=== PATIENT | female | born 1990 | race Caucasian/White ===

== ENCOUNTER 2017-05-22 16:34 | Emergency (ER) | payer OTHER ==
[2017-05-22] MEDS ORDERED: Ondansetron 4 MG/2 ML SDV ONE (16:51)
[2017-05-22] MEDS ORDERED: Morphine 4 MG/ML Syringe ONE (16:52)
[2017-05-22] MEDS ORDERED: Ondansetron 4 MG/2 ML SDV IVPUSH ONE (16:54)
[2017-05-22] MEDS ORDERED: Lactated Ringers 1,000 ML IV ONE (16:56)
[2017-05-22] MEDS ORDERED: Morphine 4 MG/ML Syringe IVPUSH ONE ×2 (16:56→18:14)
[2017-05-22] MEDS ORDERED: Acetaminophen 325 MG Tab PO ONE (17:15)
[2017-05-22] MEDS ORDERED: diphenhydrAMINE 50 MG/ML SDV IVPUSH ONE (17:30)
--- NOTE | 2017-05-22 18:15 | EDM.PDOC ---
ED HPI GENERAL MEDICAL PROBLEM - General Chief Complaint: Headache Stated Complaint: UNK Time Seen by Provider: 05/22/17 16:40 Source of Information: Reports: Patient History Limitations: Reports: No Limitations - History of Present Illness INITIAL COMMENTS - FREE TEXT/NARRATIVE: History of present illness: []Patient presents with a left-sided headache and vomiting that started last night. He fevers chills or visual changes pain. Patient is 15 weeks and has been seen by Andree Moncada today and went to the infusion services for IV fluids. She was then sent here due to ongoing headache. She did have lab work done there that was normal however a UA checked shows UTI Review of systems: As per history of present illness and below otherwise all systems reviewed and negative. Past medical history: As per history of present illness and as reviewed below otherwise noncontributory. Surgical history: As per history of present illness and as reviewed below otherwise noncontributory. Social history: No reported history of drug or alcohol abuse. Family history: As per history of present illness and as reviewed below otherwise noncontributory. Physical exam: General: Well developed, well nourished in NAD HEENT: Atraumatic, normocephalic, pupils reactive, negative for conjunctival pallor or scleral icterus, mucous membranes moist, throat clear, neck supple, nontender, trachea midline. Lungs: Clear to auscultation, breath sounds equal bilaterally, chest nontender. Heart: S1S2, regular, negative for clicks, rubs, or JVD. Abdomen: Soft, nondistended, nontender. Negative for masses or hepatosplenomegaly. Negative for costovertebral tenderness. Pelvis: Stable nontender. Genitourinary: Deferred. Rectal: Deferred. Extremities: Atraumatic, negative for cords or calf pain. Neurovascular unremarkable. Neuro: Awake, alert, oriented. Cranial nerves II through XII unremarkable. Cerebellum unremarkable. Motor and sensory unremarkable throughout. Exam nonfocal. Diagnostics: [] Therapeutics: []IV fluids morphine Zofran for pain and nausea with good results Impression: []Migraine headache, UTI Plan: []Nitrofurantoin, fill prescription for Zofran follow-up with Andree. Definitive disposition and diagnosis as appropriate pending reevaluation and review of above. 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 - Past Surgical History HEENT Surgical History: Reports: Adenoidectomy, Tonsillectomy Social & Family History - Family History Family Medical History: Noncontributory - Tobacco Use Smoking Status *Q: Never Smoker Second Hand Smoke Exposure: No - Caffeine Use Caffeine Use: Reports: None - Recreational Drug Use Recreational Drug Use: No ED ROS GENERAL - Review of Systems Review Of Systems: See Below (See history of present illness) - Physical Exam Exam: See Below (See history of present illness) Course - Vital Signs Last Recorded V/S: Last Vital Signs Temp 98.7 F 05/22/17 16:35 Pulse 95 05/22/17 16:35 Resp 16 05/22/17 16:35 BP 117/69 05/22/17 16:35 Pulse Ox 100 05/22/17 16:35 - Orders/Labs/Meds Meds: Medications Discontinued Medications Generic Name Dose Route Start Last Admin Trade Name Fidelq PRN Reason Stop Dose Admin Acetaminophen 650 mg 05/22/17 17:15 05/22/17 18:19 Tylenol PO 05/22/17 17:16 650 mg NOW ONE Administration Diphenhydramine HCl 25 mg 05/22/17 17:30 05/22/17 18:08 Benadryl IVPUSH 05/22/17 17:31 Not Given ONETIME ONE Lactated Ringer's 1,000 mls @ 999 mls/hr 05/22/17 16:56 05/22/17 16:59 Ringers, Lactated IV 05/22/17 17:56 999 mls/hr .BOLUS ONE Administration Morphine Sulfate Confirm 05/22/17 16:52 05/22/17 17:01 Morphine Administered 05/22/17 16:53 Not Given Dose 4 mg .ROUTE .STK-MED ONE Morphine Sulfate 4 mg 05/22/17 16:56 05/22/17 17:23 Morphine IVPUSH 05/22/17 16:57 4 mg ONETIME ONE Administration Morphine Sulfate 4 mg 05/22/17 18:14 05/22/17 18:20 Morphine IVPUSH 05/22/17 18:15 4 mg ONETIME ONE Administration Ondansetron HCl Confirm 05/22/17 16:51 05/22/17 17:00 Zofran Administered 05/22/17 16:52 Not Given Dose 4 mg .ROUTE .STK-MED ONE Ondansetron HCl 4 mg 05/22/17 16:54 05/22/17 16:59 Zofran IVPUSH 05/22/17 16:55 4 mg ONETIME ONE Administration Departure - Departure Time of Disposition: 18:28 Disposition: Home, Self-Care 01 Condition: Good Clinical Impression: Migraine headache Qualifiers: Migraine type: unspecified Status migrainosus presence: without status migrainosus Intractability: not intractable Qualified Code(s): G43.909 - Migraine, unspecified, not intractable, without status migrainosus UTI (urinary tract infection) Qualifiers: Urinary tract infection type: site unspecified Hematuria presence: without hematuria Qualified Code(s): N39.0 - Urinary tract infection, site not specified - Discharge Information Prescriptions: Nitrofurantoin Macrocrystal [Macrodantin] 100 mg PO BID #20 capsule Referrals: PCP,None [Primary Care Provider] - Forms: ED Department Discharge Additional Instructions: The following information is given to patients seen in the emergency department who are being discharged to home. This information is to outline your options for follow-up care. We provide all patients seen in our emergency department with a follow-up referral. The need for follow-up, as well as the timing and circumstances, are variable depending upon the specifics of your emergency department visit. If you don't have a primary care physician on staff, we will provide you with a referral. We always advise you to contact your personal physician following an emergency department visit to inform them of the circumstance of the visit and for follow-up with them and/or the need for any referrals to a consulting specialist. The emergency department will also refer you to a specialist when appropriate. This referral assures that you have the opportunity for follow-up care with a specialist. All of these measure are taken in an effort to provide you with optimal care, which includes your follow-up. Under all circumstances we always encourage you to contact your private physician who remains a resource for coordinating your care. When calling for follow-up care, please make the office aware that this follow-up is from your recent emergency room visit. If for any reason you are refused follow-up, please contact the [facility] at and asked to speak to the emergency department charge nurse. Nitrofurantoin as directed, Zofran for nausea increase fluids follow-up with Andree
[2017-05-22 18:58] VITALS: BP 106/65
== END 2017-05-22 18:50 | disposition home or self-care (01) ==
LOC: MW.ED 16:34
DX: O99.352 Diseases of the nervous system complicating pregnancy, second trimester (principal); G43.909 Migraine, unspecified, not intractable, without status migrainosus; O23.42 Unspecified infection of urinary tract in pregnancy, second trimester; Z3A.15 15 weeks gestation of pregnancy
CPT/HCPCS: 96361; 96374; 96375; 99283; A9270; J2270; J2405; J7120; 36415; 80053; 81001; 85025

== ENCOUNTER 2017-10-22 00:03 | Inpatient (IN) | payer MEDICAID ==
[2017-10-22] MEDS ORDERED: Carboprost Tromethamine 250 MCG/1 ML Amp IM PRN (00:39)
[2017-10-22] MEDS ORDERED: Tranexamic Acid 1,000 MG in Sodium Chloride 0.9% 100 ML IV PRN (00:39)
[2017-10-22] MEDS ORDERED: Methylergonovine 0.2 MG/1 ML Amp IM PRN (00:39)
[2017-10-22] MEDS ORDERED: Nalbuphine 10 MG/1 ML Vial IVPUSH PRN (00:39)
[2017-10-22] MEDS ORDERED: Butorphanol 1 MG/ML SDV IVPUSH PRN (00:39)
[2017-10-22] MEDS ORDERED: Misoprostol 200 MCG Tab PO PRN (00:39)
[2017-10-22] MEDS ORDERED: Water For Irrigation,Sterile 1,000 ML Container IRR PRN (00:39)
[2017-10-22] MEDS ORDERED: Sodium Chloride 0.9% 2.5 ML Syringe FLUSH PRN (00:39)
[2017-10-22] MEDS ORDERED: Terbutaline 1 MG/ML SDV SUBCUT PRN (00:39)
[2017-10-22] MEDS ORDERED: Sodium Chloride 0.9% 10 ML Syringe FLUSH PRN (00:39)
[2017-10-22] MEDS ORDERED: Lidocaine 1% 50 ML MDV INJECT PRN (00:39)
[2017-10-22] MEDS ORDERED: Oxytocin/0.9 % Sodium Chloride 30 UNIT/500 ML BAG IV SCH ×2 (00:45)
[2017-10-22] MEDS: Lactated Ringers 1,000 ML IV SCH ×3 (01:48→11:25)
--- NOTE | 2017-10-22 07:57 | PCM.LDHP ---
L&D History of Present Illness - General Date of Service: 10/22/17 Admit Problem/Dx: Patient Status Order with Admit Dx/Problem 10/22/17 00:39 Patient Status [ADT] Routine Admission Diagnosis/Problem Admission Diagnosis/Problem - planned 10/22/17 07:52 27yo EDC 11/12/2017 37 0/7wks TWINS, A+, R-NI, GBS neg. H/H 8.5/27.8. IOL 10/22/17 07:56 Source of Information: Patient History Limitations: Reports: No Limitations - History of Present Illness Improves with: Reports: None Worsens with: Reports: None Associated Symptoms: Reports: N - Related Data Allergies/Adverse Reactions: Allergies Allergy/AdvReac Type Severity Reaction Status Date / Time No Known Allergies Allergy Verified 05/22/17 17:09 Home Medications: Home Meds PNV95/Ferrous Fumarate/FA [ Tablet] 1 each PO DAILY 05/22/17 [History] metroNIDAZOLE [Metronidazole] 1 10/22/17 [History] metroNIDAZOLE [Metronidazole] 1 cap PO 10/22/17 [History] metroNIDAZOLE [Metronidazole] 1 cap PO DAILY 10/22/17 [History] Past Medical History - Past Health History Medical/Surgical History: Denies 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 - Past Surgical History HEENT Surgical History: Reports: Adenoidectomy, Tonsillectomy Social & Family History - Family History Family Medical History: Noncontributory - Tobacco Use Smoking Status *Q: Never Smoker Second Hand Smoke Exposure: No - Caffeine Use Caffeine Use: Reports: Coffee, Soda - Recreational Drug Use Recreational Drug Use: No H&P Review of Systems - Review of Systems: Review Of Systems: See Below General: Reports: No Symptoms HEENT: Reports: No Symptoms Pulmonary: Reports: No Symptoms Cardiovascular: Reports: No Symptoms Gastrointestinal: Reports: No Symptoms Genitourinary: Reports: No Symptoms Musculoskeletal: Reports: No Symptoms Skin: Reports: No Symptoms Psychiatric: Reports: No Symptoms Neurological: Reports: No Symptoms Hematologic/Lymphatic: Reports: No Symptoms Immunologic: Reports: No Symptoms L&D Exam - Exam Exam: See Below - Vital Signs Weight: 109.316 kg - OB Specific Contraction Intensity: Mild to Moderate Movement: Active Heart Tones: Present Heart Rate (FHR) Variability: Moderate (6-25 bmp) Presentation: Vertex (Vtx/Vtx) - Exam General: Alert, Oriented, Cooperative HEENT: Hearing Intact Lungs: Clear to Auscultation, Normal Respiratory Effort Cardiovascular: Regular Rate, Regular Rhythm, Normal S1, Normal S2 GI/Abdominal Exam: Soft, Non-Tender Rectal Exam: Normal Exam, Normal Rectal Tone Genitourinary: Cervical dilitation Back Exam: Normal Inspection, Full Range of Motion Extremities: Normal Inspection, Normal Range of Motion, Non-Tender, No Pedal Edema, Normal Capillary Refill Neurological: Cranial Nerves Intact, Reflexes Equal Bilateral, Strength Equal Bilateral, Normal Speech, Normal Tone Psychiatric: Alert, Normal Affect, Normal Mood - Patient Data Lab Results Last 24 hrs: Laboratory Results - last 24 hr 10/22/17 10/22/17 Range/Units 01:17 01:17 WBC 11.06 H (4.0-11.0) K/uL RBC 3.53 L (4.30-5.90) M/uL Hgb 8.5 L (12.0-16.0) g/dL Hct 27.8 L (36.0-46.0) % MCV 78.8 L (80.0-98.0) fL MCH 24.1 L (27.0-32.0) pg MCHC 30.6 L (31.0-37.0) g/dL RDW Std Deviation 42.3 (28.0-62.0) fl RDW Coeff of Kyle 16 H (11.0-15.0) % Plt Count 295 (150-400) K/uL MPV 10.00 (7.40-12.00) fL Blood Type A POSITIVE Antibody Screen NEGATIVE Crossmatch See Detail Result Diagrams: 10/22/17 01:17 - Problem List (1) Twin gestation in third trimester SNOMED Code(s): 39105243 ICD Code: O30.003 - TWIN PREG, UNSP NUM PLCNTA & AMNIO SACS, THIRD TRIMESTER Status: Acute Priority: High Current Visit: Yes Qualifiers: Multiple gestation type: dichorionic and diamniotic Qualified Code(s): O30.043 - Twin , dichorionic/diamniotic, third trimester (2) Anemia affecting in third trimester SNOMED Code(s): 69832891, 11069258 ICD Code: O99.013 - ANEMIA COMPLICATING , THIRD TRIMESTER Status: Acute Priority: High Current Visit: Yes Problem List Initiated/Reviewed/Updated: Yes Orders Last 24hrs: Active Orders 24 hr Category Date Time Status Patient Status [ADT] Routine ADT 10/22/17 00:39 Active Communication Order [RC] ASDIRECTED Care 10/22/17 00:39 Active Communication Order [RC] ASDIRECTED Care 10/22/17 00:39 Active Heart Tones [RC] CONTINUOUS Care 10/22/17 00:39 Active Non Stress Test [RC] PER UNIT ROUTINE Care 10/22/17 00:39 Active May Shower [RC] ASDIRECTED Care 10/22/17 00:39 Active Notify Provider [RC] PRN Care 10/22/17 00:39 Active Notify Provider [RC] PRN Care 10/22/17 00:39 Active Notify Provider [RC] STAT Care 10/22/17 00:39 Active Oxygen Therapy [RC] ASDIRECTED Care 10/22/17 00:39 Active Up ad Laura [RC] ASDIRECTED Care 10/22/17 00:39 Active Vaginal Exam [RC] PRN Care 10/22/17 00:39 Active Vital Signs [RC] PER UNIT ROUTINE Care 10/22/17 00:39 Active OB 2 Or 3 Tri Ea Addl Gest [US] Routine Exams 10/22/17 00:44 Taken RED BLOOD CELLS LP [BBK] Stat Lab 10/22/17 01:17 Results TYPE AND SCREEN [BBK] Routine Lab 10/22/17 01:17 Results Butorphanol [Stadol] Med 10/22/17 00:39 Active 1 mg IVPUSH Q1H PRN Carboprost Tromethamine [Hemabate DS] Med 10/22/17 00:39 Active 250 mcg IM ASDIRECTED PRN Lactated Ringers [Ringers, Lactated] 1,000 ml Med 10/22/17 00:45 Active IV ASDIRECTED Lidocaine 1% [Xylocaine 1%] Med 10/22/17 00:39 Active 50 ml INJECT .ONCE PRN Methylergonovine [Methergine] Med 10/22/17 00:39 Active 0.2 mg IM ASDIRECTED PRN Misoprostol [Cytotec] Med 10/22/17 00:39 Active 200 mcg PO .ONCE PRN Nalbuphine [Nubain] Med 10/22/17 00:39 Active 10 mg IVPUSH Q1H PRN Oxytocin/0.9 % Sodium Chloride [Oxytocin 30 Unit/500 ML Med 10/22/17 00:45 Active -NS] 30 unit in 500 ml IV TITRATE Oxytocin/0.9 % Sodium Chloride [Oxytocin 30 Unit/500 ML Med 10/22/17 00:45 Active -NS] 30 unit in 500 ml IV TITRATE Sodium Chloride 0.9% [Saline Flush] Med 10/22/17 00:39 Active 10 ml FLUSH ASDIRECTED PRN Sodium Chloride 0.9% [Saline Flush] Med 10/22/17 00:39 Active 2.5 ml FLUSH ASDIRECTED PRN Terbutaline [Brethine] Med 10/22/17 00:39 Active 0.25 mg SUBCUT ASDIRECTED PRN Tranexamic Acid [Cyklokapron] 1,000 mg Med 10/22/17 00:39 Active Sodium Chloride 0.9% [Normal Saline] 100 ml IV ONETIME Water For Irrigation,Sterile [Sterile Water for Med 10/22/17 00:39 Active Irrigation] 1,000 ml IRR ASDIRECTED PRN Scalp Electrode [WOMSER] Per Unit Routine Oth 10/22/17 00:39 Ordered Medication Administration Instruction [OM.PC] Q3H Oth 10/22/17 00:45 Ordered Peripheral IV Insertion Adult [OM.PC] Routine Oth 10/22/17 00:39 Ordered Resuscitation Status Routine Resus Stat 10/22/17 00:39 Ordered Medication Orders Butorphanol Tartrate (Stadol) 1 mg IVPUSH Q1H PRN PRN Reason: Pain Carboprost Tromethamine (Hemabate Ds) 250 mcg IM ASDIRECTED PRN PRN Reason: Post Hemorrhage Lactated Ringer's (Ringers, Lactated) 1,000 mls @ 150 mls/hr IV ASDIRECTED REANNA Last Admin: 10/22/17 01:48 Dose: 150 mls/hr Oxytocin/Sodium Chloride (Oxytocin 30 Unit/500 Ml-Ns) 30 unit in 500 mls @ 999 mls/hr IV TITRATE REANNA Oxytocin/Sodium Chloride (Oxytocin 30 Unit/500 Ml-Ns) 30 unit in 500 mls @ 2 mls/hr IV TITRATE REANNA; Protocol Last Titration: 10/22/17 06:30 Dose: 10 munits/min, 10 mls/hr Titration: 10/22/17 05:15 Dose: 8 munits/min, 8 mls/hr Titration: 10/22/17 04:30 Dose: 6 munits/min, 6 mls/hr Titration: 10/22/17 03:53 Dose: 4 munits/min, 4 mls/hr Admin: 10/22/17 02:48 Dose: 2 munits/min, 2 mls/hr Tranexamic Acid 1,000 mg/ (Sodium Chloride) 110 mls @ 660 mls/hr IV ONETIME PRN PRN Reason: Bleeding Lidocaine HCl (Xylocaine 1%) 50 ml INJECT .ONCE PRN PRN Reason: Laceration repair Methylergonovine Maleate (Methergine) 0.2 mg IM ASDIRECTED PRN PRN Reason: Post Hemorrhage Misoprostol (Cytotec) 200 mcg PO .ONCE PRN PRN Reason: Post Hemorrhage Nalbuphine HCl (Nubain) 10 mg IVPUSH Q1H PRN PRN Reason: Pain (severe 7-10) Sodium Chloride (Saline Flush) 10 ml FLUSH ASDIRECTED PRN PRN Reason: Keep Vein Open Sodium Chloride (Saline Flush) 2.5 ml FLUSH ASDIRECTED PRN PRN Reason: Keep Vein Open Sterile Water (Sterile Water For Irrigation) 1,000 ml IRR ASDIRECTED PRN PRN Reason: delivery Terbutaline Sulfate (Brethine) 0.25 mg SUBCUT ASDIRECTED PRN PRN Reason: Tacysystole Assessment/Plan Comment:: IOL A: 27yo EDC 11/12/2017 37 0/7wks TWINS, A+, R-NI, GBS neg. H/H 8.5/27.8. IOL, VSS, AF, Cat I tracing x2, Epidural now P: Admit, pitocin, epidural, anticipate , Dr Kim and Shantell updated on pt status
--- NOTE | 2017-10-22 08:41 | PCM.PREANE ---
Preanesthetic Assessment - Anesthesia/Transfusion/Family Hx Family History of Anesthesia Reaction: No - Review of Systems General: No Symptoms Pulmonary: No Symptoms Cardiovascular: No Symptoms Gastrointestinal: No Symptoms Neurological: No Symptoms Other: Reports: None (Denies any personal or family hx of bleeding or clotting problems) - Physical Assessment Height: 1.7 m Weight: 109.316 kg ASA Class: 2 Mental Status: Alert & Oriented x3 ROM/Head Extension: Full - Lab Values: Laboratory Last Values WBC 11.06 K/uL (4.0-11.0) H 10/22/17 01:17 RBC 3.53 M/uL (4.30-5.90) L 10/22/17 01:17 Hgb 8.5 g/dL (12.0-16.0) L 10/22/17 01:17 Hct 27.8 % (36.0-46.0) L 10/22/17 01:17 MCV 78.8 fL (80.0-98.0) L 10/22/17 01:17 MCH 24.1 pg (27.0-32.0) L 10/22/17 01:17 MCHC 30.6 g/dL (31.0-37.0) L 10/22/17 01:17 RDW Std Deviation 42.3 fl (28.0-62.0) 10/22/17 01:17 RDW Coeff of Kyle 16 % (11.0-15.0) H 10/22/17 01:17 Plt Count 295 K/uL (150-400) 10/22/17 01:17 MPV 10.00 fL (7.40-12.00) 10/22/17 01:17 Blood Type A POSITIVE 10/22/17 01:17 Antibody Screen NEGATIVE 10/22/17 01:17 Crossmatch See Detail 10/22/17 01:17 - Allergies Allergies/Adverse Reactions: Allergies Allergy/AdvReac Type Severity Reaction Status Date / Time No Known Allergies Allergy Verified 05/22/17 17:09 - Acknowledgements Anesthesia Type Planned: Epidural Pt an Appropriate Candidate for the Planned Anesthesia: Yes Alternatives and Risks of Anesthesia Discussed w Pt/Guardian: Yes Pt/Guardian Understands and Agrees with Anesthesia Plan: Yes PreAnesthesia Questionnaire - Past Health History Medical/Surgical History: Denies 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 - Past Surgical History HEENT Surgical History: Reports: Adenoidectomy, Tonsillectomy - SUBSTANCE USE Smoking Status *Q: Never Smoker Second Hand Smoke Exposure: No Recreational Drug Use History: No - HOME MEDS Home Medications: Home Meds PNV95/Ferrous Fumarate/FA [ Tablet] 1 each PO DAILY 05/22/17 [History] metroNIDAZOLE [Metronidazole] 1 10/22/17 [History] metroNIDAZOLE [Metronidazole] 1 cap PO 10/22/17 [History] metroNIDAZOLE [Metronidazole] 1 cap PO DAILY 10/22/17 [History] - CURRENT (IN HOUSE) MEDS Current Meds: Current Medications Butorphanol Tartrate (Stadol) 1 mg IVPUSH Q1H PRN PRN Reason: Pain Carboprost Tromethamine (Hemabate Ds) 250 mcg IM ASDIRECTED PRN PRN Reason: Post Hemorrhage Lactated Ringer's (Ringers, Lactated) 1,000 mls @ 150 mls/hr IV ASDIRECTED REANNA Last Admin: 10/22/17 08:00 Dose: 999 mls/hr Oxytocin/Sodium Chloride (Oxytocin 30 Unit/500 Ml-Ns) 30 unit in 500 mls @ 999 mls/hr IV TITRATE REANNA Oxytocin/Sodium Chloride (Oxytocin 30 Unit/500 Ml-Ns) 30 unit in 500 mls @ 2 mls/hr IV TITRATE REANNA; Protocol Last Titration: 10/22/17 08:28 Dose: 12 munits/min, 12 mls/hr Tranexamic Acid 1,000 mg/ (Sodium Chloride) 110 mls @ 660 mls/hr IV ONETIME PRN PRN Reason: Bleeding Lidocaine HCl (Xylocaine 1%) 50 ml INJECT .ONCE PRN PRN Reason: Laceration repair Methylergonovine Maleate (Methergine) 0.2 mg IM ASDIRECTED PRN PRN Reason: Post Hemorrhage Misoprostol (Cytotec) 200 mcg PO .ONCE PRN PRN Reason: Post Hemorrhage Nalbuphine HCl (Nubain) 10 mg IVPUSH Q1H PRN PRN Reason: Pain (severe 7-10) Sodium Chloride (Saline Flush) 10 ml FLUSH ASDIRECTED PRN PRN Reason: Keep Vein Open Sodium Chloride (Saline Flush) 2.5 ml FLUSH ASDIRECTED PRN PRN Reason: Keep Vein Open Sterile Water (Sterile Water For Irrigation) 1,000 ml IRR ASDIRECTED PRN PRN Reason: delivery Terbutaline Sulfate (Brethine) 0.25 mg SUBCUT ASDIRECTED PRN PRN Reason: Tacysystole Discontinued Medications Fentanyl/Bupivacaine HCl ([id number]-[id number] 2 Mcg/Ml-0.125%) Confirm Administered Dose 100 mls @ as directed EP .STK-MED ONE Stop: 10/22/17 07:50 Last Admin: 10/22/17 08:23 Dose: 9 mls/hr
--- NOTE | 2017-10-22 14:23 | PCM.DEL ---
L & D Note - General Info Date of Service: 10/22/17 Mother's Due Date: 11/12/17 - Delivery Note Labor: Induced by Oxytocin Delivery Outcome: Livebirth Infant Delivery Method: Spontaneous Vaginal Delivery-Twins Infant Delivery Mode: Spontaneous (twin A and Vacuum assist with B for one push) Presentation: Vertex (Vtx/Vtx) Nuchal Cord: Present, Reduced Anesthesia Type: Epidural Amniotic Fluid Description: Clear Episiotomy Type: None Laceration: None Placenta: Intact, Spontaneous Cord: 3 Vessels Estimated Blood Loss: 200 Resuscitation Needed: No Score 1 min: 9 (A and B) Score 5 min: 9 (A and B) Second Stage Interventions: Reports: Pushing, Pulls Own Legs Back Delivery Comments (Free Text/Narrative):: of viable girl (twin A) over intact perineum, head delivered with good pushing, shoulder and body loose nuchal noted followed easily. Infant to mothers abd with spont cry. Dr Stinson at bs for evaluation. Delayed cord clamp x1 min, cord clamped x2 and cut. Cord blood collected. BS u/s noted twin B vertex, after a few min baby engaged in the pelvis and AROM clear fluid. Pushing resumed. FHT noted dropping to the 80 for B. O2 at 10L. Dr Kim placed a [place] vacuum and with one push the infant was . Head delivered with good pushing, shoulders and body followed and body nuchal noted. spont cry placed on the abd and again Dr Stinson was at bs for evaluation. Delayed cord clamp, pitocin to IVF, Cord clamped and cut. Cord blood collected. Placentas delivered grossly intact x2. Inspection noted intact perineum. EBL 200cc. APGARS A: 12/20 Wt: 6lb 2oz, B: / Wt: 5lb 15oz. Mother and baby's stable and bonding well. Vacuum Extractor Progress Note - Alternative Labor Strategies Considered Alternative Labor Strategies Considered:: Reports: Yes Strategies Considered:: Reports: Contraction Intensity Adequate, Empty Bladder Indications Considered:: Reports: Yes Indications:: Reports: Suspicion of Immediate or Potential Compromise - Patient Prepared Patient Prepared:: Reports: Yes Informed Consent:: Reports: Verbal Risks: Reports: Yes Risks Include:: Reports: Laceration, Shoulder Dystocia, Maternal Injury Anesthesia/Analgesia Adequate:: Reports: Yes - Probability of Success High Probability of Success:: Reports: Yes Weight Estimated:: Reports: AGA Patient Diabetic:: Reports: No Pelvis Adequate:: Reports: Yes Asynclitic:: Reports: Yes - General Info Date of Service: 10/22/17 Admission Dx/Problem (Free Text): Patient Status Order with Admit Dx/Problem 10/22/17 00:39 Patient Status [ADT] Routine Admission Diagnosis/Problem Admission Diagnosis/Problem - planned 10/22/17 07:52 27yo EDC 11/12/2017 37 0/7wks TWINS, A+, R-NI, GBS neg. H/H 8.5/27.8. IOL 10/22/17 07:56 Functional Status: Reports: Pain Controlled - Review of Systems General: Reports: No Symptoms HEENT: Reports: No Symptoms Pulmonary: Reports: No Symptoms Cardiovascular: Reports: No Symptoms Gastrointestinal: Reports: No Symptoms Genitourinary: Reports: No Symptoms Musculoskeletal: Reports: No Symptoms Skin: Reports: No Symptoms Neurological: Reports: No Symptoms Psychiatric: Reports: No Symptoms - Patient Data Weight - Most Recent: 109.316 kg Lab Results Last 24 Hours: Laboratory Results - last 24 hr 10/22/17 10/22/17 Range/Units 01:17 01:17 WBC 11.06 H (4.0-11.0) K/uL RBC 3.53 L (4.30-5.90) M/uL Hgb 8.5 L (12.0-16.0) g/dL Hct 27.8 L (36.0-46.0) % MCV 78.8 L (80.0-98.0) fL MCH 24.1 L (27.0-32.0) pg MCHC 30.6 L (31.0-37.0) g/dL RDW Std Deviation 42.3 (28.0-62.0) fl RDW Coeff of Kyle 16 H (11.0-15.0) % Plt Count 295 (150-400) K/uL MPV 10.00 (7.40-12.00) fL Blood Type A POSITIVE Antibody Screen NEGATIVE Crossmatch See Detail Med Orders - Current: Current Medications Discontinued Medications Butorphanol Tartrate (Stadol) 1 mg IVPUSH Q1H PRN PRN Reason: Pain Carboprost Tromethamine (Hemabate Ds) 250 mcg IM ASDIRECTED PRN PRN Reason: Post Hemorrhage Lactated Ringer's (Ringers, Lactated) 1,000 mls @ 150 mls/hr IV ASDIRECTED REANNA Last Admin: 10/22/17 11:25 Dose: 150 mls/hr Oxytocin/Sodium Chloride (Oxytocin 30 Unit/500 Ml-Ns) 30 unit in 500 mls @ 999 mls/hr IV TITRATE REANNA Oxytocin/Sodium Chloride (Oxytocin 30 Unit/500 Ml-Ns) 30 unit in 500 mls @ 2 mls/hr IV TITRATE REANNA; Protocol Last Titration: 10/22/17 11:00 Dose: 16 munits/min, 16 mls/hr Tranexamic Acid 1,000 mg/ (Sodium Chloride) 110 mls @ 660 mls/hr IV ONETIME PRN PRN Reason: Bleeding Fentanyl/Bupivacaine HCl (Htzmsxgw-Jkhwe-Xj 2 Mcg/Ml-0.125%) Confirm Administered Dose 100 mls @ as directed EP .K-MED ONE Stop: 10/22/17 07:50 Last Admin: 10/22/17 08:23 Dose: 9 mls/hr Lidocaine HCl (Xylocaine 1%) 50 ml INJECT .ONCE PRN PRN Reason: Laceration repair Methylergonovine Maleate (Methergine) 0.2 mg IM ASDIRECTED PRN PRN Reason: Post Hemorrhage Misoprostol (Cytotec) 200 mcg PO .ONCE PRN PRN Reason: Post Hemorrhage Nalbuphine HCl (Nubain) 10 mg IVPUSH Q1H PRN PRN Reason: Pain (severe 7-10) Sodium Chloride (Saline Flush) 10 ml FLUSH ASDIRECTED PRN PRN Reason: Keep Vein Open Sodium Chloride (Saline Flush) 2.5 ml FLUSH ASDIRECTED PRN PRN Reason: Keep Vein Open Sterile Water (Sterile Water For Irrigation) 1,000 ml IRR ASDIRECTED PRN PRN Reason: delivery Terbutaline Sulfate (Brethine) 0.25 mg SUBCUT ASDIRECTED PRN PRN Reason: Tacysystole - Exam General: Alert, Oriented, No Acute Distress Lungs: Normal Respiratory Effort GI/Abdominal Exam: Soft (Female) Exam: Normal External Exam, Normal Bimanual Exam, Vaginal Bleeding Back Exam: Normal Inspection, Full Range of Motion Extremities: Normal Inspection, Normal Range of Motion, Non-Tender, No Pedal Edema, Normal Capillary Refill Skin: Warm, Dry, Intact Wound/Incisions: Healing Well Neurological: No New Focal Deficit, Normal Speech, Normal Tone, Strength Equal Bilateral Psy/Mental Status: Alert, Normal Affect, Normal Mood - Problem List & Annotations (1) Twin gestation in third trimester SNOMED Code(s): 00260865 Code(s): O30.003 - TWIN PREG, UNSP NUM PLCNTA & AMNIO SACS, THIRD TRIMESTER Status: Acute Priority: High Current Visit: Yes Qualifiers: Multiple gestation type: dichorionic and diamniotic Qualified Code(s): O30.043 - Twin , dichorionic/diamniotic, third trimester (2) Anemia affecting in third trimester SNOMED Code(s): 57837976, 51872533 Code(s): O99.013 - ANEMIA COMPLICATING , THIRD TRIMESTER Status: Acute Priority: High Current Visit: Yes (3) Twin SNOMED Code(s): 74362225 Code(s): Z37.9 - OUTCOME OF DELIVERY, UNSPECIFIED Status: Acute Priority : High Current Visit: Yes (4) (spontaneous vaginal delivery) SNOMED Code(s): 47509711 Code(s): O80 - ENCOUNTER FOR FULL-TERM UNCOMPLICATED DELIVERY Status: Acute Priority: High Current Visit: No - Problem List Review Problem List Initiated/Reviewed/Updated: Yes - Plan Plan:: IOL A: 27yo EDC 11/12/2017 37 0/7wks TWINS, A+, R-NI, GBS neg. H/H 8.5/27.8. IOL, VSS, AF, Cat I tracing x2, Epidural now P: Admit, pitocin, epidural, anticipate , Dr Kim and Shantell updated on pt status Delivery A: of twin A and vacuum assist with twin B, APGARS 9/9 for both A: 6lb 2oz , B: 5lb 15oz, Intact perineum, EBL 200cc. STable mom and babies P: Routine pp plan of care
[2017-10-22] MEDS ORDERED: oxyCODONE 5 MG Tab PO PRN (14:27)
[2017-10-22] MEDS ORDERED: Bisacodyl 10 MG Supp RECTAL PRN (14:27)
[2017-10-22] MEDS ORDERED: Acetaminophen 500 MG Tab PO PRN ×2 (14:27)
[2017-10-22] MEDS ORDERED: Ibuprofen 400 MG Tab PO PRN (14:27)
[2017-10-22] MEDS ORDERED: Benzocaine/Menthol 20%-0.5% Spray 78 GM Cannister TOP PRN (14:27)
[2017-10-22] MEDS ORDERED: Witch Hazel Medicated Pads 40/Jar TOP PRN (14:27)
[2017-10-22] MEDS ORDERED: Lanolin 100% Cream 7 GM Tube TOP PRN (14:27)
--- NOTE | 2017-10-22 16:16 | US ---
EXAMINATION: Transabdominal obstetric ultrasound HISTORY: Twin delivery COMPARISON: 10/22/2017 TECHNIQUE: Single grayscale images provided FINDINGS/IMPRESSION: Single grayscale images demonstrates twin B in a cephalic position.
--- NOTE | 2017-10-22 17:28 | PCM48HPAN ---
Post Anesthesia Note - EVALUATION WITHIN 48HRS OF ANESTHETIC Vital Signs in Normal Range: Yes Patient Participated in Evaluation: Yes Respiratory Function Stable: Yes Airway Patent: Yes Cardiovascular Function Stable: Yes Hydration Status Stable: Yes Pain Control Satisfactory: Yes Nausea and Vomiting Control Satisfactory: Yes Mental Status Recovered: Yes Resp Rate: 18 - COMMENTS/OBSERVATIONS Free Text/Narrative:: Patient sitting up in bed and denies any complaints. States epidural worked well and was taken out immediately after delivery.
[2017-10-23] MEDS: Ibuprofen 800 MG Tab PO PRN ×2 (03:01→13:01)
[2017-10-23] MEDS: Docusate Sodium 100 MG Cap PO PRN ×2 (09:12→22:03)
--- NOTE | 2017-10-23 10:08 | PCM.PNPP ---
- General Info Date of Service: 10/23/17 Functional Status: Reports: Pain Controlled - Review of Systems General: Reports: No Symptoms HEENT: Reports: No Symptoms Pulmonary: Reports: No Symptoms Cardiovascular: Reports: No Symptoms Gastrointestinal: Reports: No Symptoms Genitourinary: Reports: No Symptoms Musculoskeletal: Reports: No Symptoms Skin: Reports: No Symptoms Neurological: Reports: No Symptoms Psychiatric: Reports: No Symptoms - General Info Date of Service: 10/23/17 - Patient Data Vital Signs - Most Recent: Last Vital Signs Temp 37.0 C 10/23/17 05:00 Pulse 84 10/23/17 05:00 Resp 18 10/23/17 05:00 BP 112/58 L 10/23/17 05:00 Pulse Ox 96 10/23/17 05:00 Weight - Most Recent: 109.316 kg Lab Results - Last 24 Hours: Laboratory Results - last 24 hr 10/23/17 Range/Units 05:11 Hgb 8.6 L (12.0-16.0) g/dL Hct 27.4 L (36.0-46.0) % Med Orders - Current: Current Medications Acetaminophen (Tylenol Extra Strength) 500 mg PO Q4H PRN PRN Reason: Pain Acetaminophen (Tylenol Extra Strength) 1,000 mg PO Q4H PRN PRN Reason: Pain Benzocaine/Menthol (Dermoplast Pain Relief 20%-0.5% [place]) 78 gm TOP ASDIRECTED PRN PRN Reason: Perineal Comfort Measure Last Admin: 10/22/17 17:06 Dose: 1 spray Bisacodyl (Dulcolax) 10 mg RECTAL .ONCE PRN PRN Reason: Constipation Docusate Sodium (Colace) 100 mg PO BID PRN PRN Reason: Constipation Last Admin: 10/23/17 09:12 Dose: 100 mg Emollient Ointment (Lansinoh Hpa) 0 gm TOP ASDIRECTED PRN PRN Reason: Sore Nipples Last Admin: 10/23/17 09:12 Dose: 7 gm Ibuprofen (Motrin) 400 mg PO Q4H PRN PRN Reason: Pain Ibuprofen (Motrin) 800 mg PO Q6H PRN PRN Reason: Pain Last Admin: 10/23/17 03:01 Dose: 800 mg Oxycodone HCl (Oxycodone) 5 mg PO Q2H PRN PRN Reason: Pain Witch Fely (Tucks) 1 pad TOP ASDIRECTED PRN PRN Reason: comfort care Last Admin: 10/22/17 17:07 Dose: 1 applic Discontinued Medications Butorphanol Tartrate (Stadol) 1 mg IVPUSH Q1H PRN PRN Reason: Pain Carboprost Tromethamine (Hemabate Ds) 250 mcg IM ASDIRECTED PRN PRN Reason: Post Hemorrhage Lactated Ringer's (Ringers, Lactated) 1,000 mls @ 150 mls/hr IV ASDIRECTED REANNA Last Infusion: 10/22/17 15:15 Dose: Infused Oxytocin/Sodium Chloride (Oxytocin 30 Unit/500 Ml-Ns) 30 unit in 500 mls @ 999 mls/hr IV TITRATE REANNA Oxytocin/Sodium Chloride (Oxytocin 30 Unit/500 Ml-Ns) 30 unit in 500 mls @ 2 mls/hr IV TITRATE REANNA; Protocol Last Titration: 10/22/17 13:49 Dose: 500 munits/min, 500 mls/hr Tranexamic Acid 1,000 mg/ (Sodium Chloride) 110 mls @ 660 mls/hr IV ONETIME PRN PRN Reason: Bleeding Fentanyl/Bupivacaine HCl (Mdsllcuj-Yzlpd-Az 2 Mcg/Ml-0.125%) Confirm Administered Dose 100 mls @ as directed EP .STK-MED ONE Stop: 10/22/17 07:50 Last Admin: 10/22/17 08:23 Dose: 9 mls/hr Lidocaine HCl (Xylocaine 1%) 50 ml INJECT .ONCE PRN PRN Reason: Laceration repair Methylergonovine Maleate (Methergine) 0.2 mg IM ASDIRECTED PRN PRN Reason: Post Hemorrhage Misoprostol (Cytotec) 200 mcg PO .ONCE PRN PRN Reason: Post Hemorrhage Nalbuphine HCl (Nubain) 10 mg IVPUSH Q1H PRN PRN Reason: Pain (severe 7-10) Sodium Chloride (Saline Flush) 10 ml FLUSH ASDIRECTED PRN PRN Reason: Keep Vein Open Sodium Chloride (Saline Flush) 2.5 ml FLUSH ASDIRECTED PRN PRN Reason: Keep Vein Open Sterile Water (Sterile Water For Irrigation) 1,000 ml IRR ASDIRECTED PRN PRN Reason: delivery Terbutaline Sulfate (Brethine) 0.25 mg SUBCUT ASDIRECTED PRN PRN Reason: Tacysystole - Interaction Infant Disposition, : [place] in Room with Family Infant Interaction: Holding Infant Feeding: Attempted ; Nursed Fair/Poor Support Person: , Other (see below) - Recovery Exam Fundal Tone: Firm Fundal Level: At Umbilicus Fundal Placement: Midline Lochia Amount: Scant, Small Lochia Color: Rubra/Red Perineum Description: Redness, Edematous Episiotomy/Laceration: None Bladder Status: Voiding Urinary Elimination: Voided - Exam General: Alert, Oriented HEENT: Pupils Equal Neck: Supple Lungs: Clear to Auscultation, Normal Respiratory Effort Cardiovascular: Regular Rate, Regular Rhythm GI/Abdominal Exam: Normal Bowel Sounds, Soft, Non-Tender, No Organomegaly, No Distention, No Abnormal Bruit, No Mass, Pelvis Stable Extremities: Normal Inspection, Normal Range of Motion, Non-Tender, No Pedal Edema, Normal Capillary Refill Skin: Warm, Dry, Intact Wound/Incisions: Healing Well Neurological: No New Focal Deficit Psy/Mental Status: Alert, Normal Affect, Normal Mood - Problem List Review Problem List Initiated/Reviewed/Updated: Yes - Assessment Assessment:: S/P vaginal Twin dekivery doind well. Stas savage am - Plan Plan:: IOL A: 27yo EDC 11/12/2017 37 0/7wks TWINS, A+, R-NI, GBS neg. H/H 8.5/27.8. IOL, VSS, AF, Cat I tracing x2, Epidural now P: Admit, pitocin, epidural, anticipate , Dr Kim and Shantell updated on pt status Delivery A: of twin A and vacuum assist with twin B, APGARS 9/9 for both A: 6lb 2oz , B: 5lb 15oz, Intact perineum, EBL 200cc. STable mom and babies P: Routine pp plan of care
--- NOTE | 2017-10-23 11:11 | US ---
EXAM DATE: 10/22/17 PATIENT'S AGE: 27 Patient: LUZMARIA LEMA Facility: [facility] Site . Site : [id number] Study: US-OB Pelvis [id number] 1:46:32 AM Ordering Physician: Julio Mcmillan Final Report: INDICATION: Twin gestation. Evaluate presentation. TECHNIQUE: Limited 2D martins scale imaging was performed of the pelvis. FINDINGS: Sonographic imaging demonstrates a living twin intrauterine gestation. Twin A has a cephalic presentation and longitudinal lie and lies to the maternal left. Twin A demonstrates a cardiac rate of 115 beats per minute. Twin B lies to the maternal right and also demonstrates a cephalic presentation. Twin B demonstrates a cardiac rate of 166 beats per minute. IMPRESSION: Cephalic presentation of both twins. Dictated by Alvaro Preciado MD @ Oct 22 2017 3:54PM Signed by: Alvaro Preciado MD @10/22/2017 3:58:17 PM (Electronic Signature) Report Signed by Proxy. NINA
[2017-10-24 07:43] VITALS: BP 119/64
--- NOTE | 2017-10-24 11:52 | PCM.PNPP ---
- General Info Date of Service: 10/24/17 Admission Dx/Problem (Free Text): PPD#2 s/p , twin delivery Functional Status: Reports: Pain Controlled, Tolerating Diet, Ambulating, Urinating - Review of Systems General: Denies: Fever, Weakness HEENT: Denies: Headaches Pulmonary: Denies: Shortness of Breath, Pleuritic Chest Pain Cardiovascular: Denies: Chest Pain, Palpitations Gastrointestinal: Denies: Abdominal Pain Genitourinary: Reports: Urgency. Denies: Dysuria, Incontinence, Retention Psychiatric: Denies: Depression, Mood Lability, Anxiety - General Info Date of Service: 10/24/17 - Patient Data Vital Signs - Most Recent: Last Vital Signs Temp 36.9 C 10/24/17 07:00 Pulse 83 10/24/17 07:00 Resp 15 10/24/17 07:00 BP 119/64 10/24/17 07:00 Pulse Ox 95 10/24/17 07:00 Weight - Most Recent: 241 lb Med Orders - Current: Current Medications Acetaminophen (Tylenol Extra Strength) 500 mg PO Q4H PRN PRN Reason: Pain Acetaminophen (Tylenol Extra Strength) 1,000 mg PO Q4H PRN PRN Reason: Pain Benzocaine/Menthol (Dermoplast Pain Relief 20%-0.5% [place]) 78 gm TOP ASDIRECTED PRN PRN Reason: Perineal Comfort Measure Last Admin: 10/22/17 17:06 Dose: 1 spray Bisacodyl (Dulcolax) 10 mg RECTAL .ONCE PRN PRN Reason: Constipation Docusate Sodium (Colace) 100 mg PO BID PRN PRN Reason: Constipation Last Admin: 10/23/17 22:03 Dose: 100 mg Emollient Ointment (Lansinoh Hpa) 0 gm TOP ASDIRECTED PRN PRN Reason: Sore Nipples Last Admin: 10/23/17 09:12 Dose: 7 gm Ibuprofen (Motrin) 400 mg PO Q4H PRN PRN Reason: Pain Ibuprofen (Motrin) 800 mg PO Q6H PRN PRN Reason: Pain Last Admin: 10/23/17 13:01 Dose: 800 mg Oxycodone HCl (Oxycodone) 5 mg PO Q2H PRN PRN Reason: Pain Witch Fely (Tucks) 1 pad TOP ASDIRECTED PRN PRN Reason: comfort care Last Admin: 10/22/17 17:07 Dose: 1 applic Discontinued Medications Butorphanol Tartrate (Stadol) 1 mg IVPUSH Q1H PRN PRN Reason: Pain Carboprost Tromethamine (Hemabate Ds) 250 mcg IM ASDIRECTED PRN PRN Reason: Post Hemorrhage Lactated Ringer's (Ringers, Lactated) 1,000 mls @ 150 mls/hr IV ASDIRECTED REANNA Last Infusion: 10/22/17 15:15 Dose: Infused Oxytocin/Sodium Chloride (Oxytocin 30 Unit/500 Ml-Ns) 30 unit in 500 mls @ 999 mls/hr IV TITRATE REANNA Oxytocin/Sodium Chloride (Oxytocin 30 Unit/500 Ml-Ns) 30 unit in 500 mls @ 2 mls/hr IV TITRATE REANNA; Protocol Last Titration: 10/22/17 13:49 Dose: 500 munits/min, 500 mls/hr Tranexamic Acid 1,000 mg/ (Sodium Chloride) 110 mls @ 660 mls/hr IV ONETIME PRN PRN Reason: Bleeding Fentanyl/Bupivacaine HCl (Zbcstctg-Kvxjz-Qc 2 Mcg/Ml-0.125%) Confirm Administered Dose 100 mls @ as directed EP .STK-MED ONE Stop: 10/22/17 07:50 Last Admin: 10/22/17 08:23 Dose: 9 mls/hr Lidocaine HCl (Xylocaine 1%) 50 ml INJECT .ONCE PRN PRN Reason: Laceration repair Methylergonovine Maleate (Methergine) 0.2 mg IM ASDIRECTED PRN PRN Reason: Post Hemorrhage Misoprostol (Cytotec) 200 mcg PO .ONCE PRN PRN Reason: Post Hemorrhage Nalbuphine HCl (Nubain) 10 mg IVPUSH Q1H PRN PRN Reason: Pain (severe 7-10) Sodium Chloride (Saline Flush) 10 ml FLUSH ASDIRECTED PRN PRN Reason: Keep Vein Open Sodium Chloride (Saline Flush) 2.5 ml FLUSH ASDIRECTED PRN PRN Reason: Keep Vein Open Sterile Water (Sterile Water For Irrigation) 1,000 ml IRR ASDIRECTED PRN PRN Reason: delivery Terbutaline Sulfate (Brethine) 0.25 mg SUBCUT ASDIRECTED PRN PRN Reason: Tacysystole - Infant Interaction Disposition, : in Room with Family Infant Interaction: Holding Infant Feeding: Attempted ; Nursed Fair/Poor, Bottle Fed Support Person: , Other (see below) - Recovery Exam Fundal Tone: Firm Fundal Level: 1 Fingerbreadths Below Umbilicus Fundal Placement: Midline Lochia Amount: Small Lochia Color: Rubra/Red Perineum Description: Intact, Minimal Bruising/Swelling Episiotomy/Laceration: None Bladder Status: Voiding Urinary Elimination: Voided - Exam General: Alert, Oriented Neck: Supple Lungs: Clear to Auscultation, Normal Respiratory Effort Cardiovascular: Regular Rate, Regular Rhythm GI/Abdominal Exam: Normal Bowel Sounds Extremities: Non-Tender, Pedal Edema Skin: Warm Psy/Mental Status: Alert, Normal Affect, Normal Mood - Problem List & Annotations (1) Anemia affecting in third trimester SNOMED Code(s): 93052238, 77406725 Code(s): O99.013 - ANEMIA COMPLICATING , THIRD TRIMESTER Status: Chronic Priority: High Current Visit: Yes (2) Twin SNOMED Code(s): 07750563 Code(s): Z37.9 - OUTCOME OF DELIVERY, UNSPECIFIED Status: Acute Priority : High Current Visit: Yes - Problem List Review Problem List Initiated/Reviewed/Updated: Yes - Assessment Assessment:: PPD#2, s/p , twin delivery, doing well and coping good Anemia, asymptomatic - Plan Plan:: Discharge instructions reviewed. Nothing in the vagina for 6 weeks Bleeding and infection precautions reviewed Continue PNV Start twice daily iron supplements with Vit C OTC pain meds for pain as needed blues vs depression S/S reviewed Follow up in [facility] in 6 weeks or eariler as indicated
== END 2017-10-24 12:25 | disposition home or self-care (01) | DRG 775 ==
LOC: MW.OBCHECK 00:03 → MW.OB 00:07 → MW.OBCHECK 00:39 → MW.OB 00:39 → OBSVTOIN 13:44 → MW.OB 17:24
PROVIDERS: ADMIT Obstetrics & Gynecology; ATTEND Obstetrics & Gynecology
PROC: 10E0XZZ Delivery of Products of Conception, External Approach (ICD-10-PCS; principal; 2017-10-22)
PROC: 10D07Z6 Extraction of Products of Conception, Vacuum, Via Natural or Artificial Opening (ICD-10-PCS; 2017-10-22)
PROC: 3E033VJ Introduction of Other Hormone into Peripheral Vein, Percutaneous Approach (ICD-10-PCS; 2017-10-22)
PROC: 10907ZC Drainage of Amniotic Fluid, Therapeutic from Products of Conception, Via Natural or Artificial Opening (ICD-10-PCS; 2017-10-22)
DX: O60.14X0 Preterm labor third trimester with preterm delivery third trimester, not applicable or unspecified (principal); O30.003 Twin pregnancy, unspecified number of placenta and unspecified number of amniotic sacs, third trimester; O99.02 Anemia complicating childbirth; Z3A.37 37 weeks gestation of pregnancy; Z37.2 Twins, both liveborn
CPT/HCPCS: 36415; 59025; 59409; 76810; 76810-26; 76815; 76815-26; 85014; 85018; 85027; 86850; 86900; 86901; 86920; 86921; 86922; A9270-GY; J2590; J7120